=== PATIENT | male | born 1935 | race Caucasian/White ===

== ENCOUNTER 2017-01-25 08:37 | Day surgery (SDC) | payer MEDICARE ==
--- NOTE | 2017-01-18 15:43 | HP ---
CC: Dr. Damien Hodge * ADMISSION HISTORY AND PHYSICAL: DATE OF ADMISSION: 01/25/17 ATTENDING SURGEON: Dr. Toby Pena *(REBECCA Nickerson dictating). CHIEF COMPLAINT: Umbilical hernia. HISTORY OF PRESENT ILLNESS: This is a 81-year-old male, who underwent laparoscopic bilateral inguinal hernia repair with Dr. Pena in 2004. There was apparently a small umbilical hernia at the time and that was closed primarily. The patient did well initially. Beginning about 6 months ago, he noted the development of a bulge near the umbilical incision and this has increased in size over time. He states that it has otherwise been asymptomatic and he specifically denies pain or any change in GI function. He does note that the bulge increases in relation to activity and therefore, he has had to curb some of his exercises that he normally does for his chronic back pain. He was seen by Dr. Pena in the office on 12/13/16, at which time exam confirmed the presence of an umbilical hernia somewhat to the left and midline. On Dr. Pena's exam, it is described as readily reducible and tender. On my exam today, I am not able to easily reduce it, though it remains nontender. Dr. Pena discussed with him the indications for surgery, the risks, benefits and alternatives, including the possibility of no surgery. The would like to proceed as scheduled with open repair, recurrent umbilical hernia with mesh. PAST MEDICAL HISTORY: Hyperlipidemia, BPH, peripheral arterial disease, macular degeneration of the right eye. He denies any history of heart disease, diabetes, or COPD, though he was a long-time smoker who quit 3-1/2 years ago. PAST SURGICAL HISTORY: Open right inguinal herniorrhaphy at age 14, laparoscopic bilateral inguinal herniorrhaphies with primary umbilical hernia repair in 2004. No reported surgical or anesthesia complications. CURRENT MEDICATIONS: 1. Aspirin 81 mg once daily (he will hold preoperatively, his last dose being 01/18/17). 2. Tamsulosin 0.4 mg once daily 3. Cilostazol 100 mg b.i.d. (he will hold after his last dose the evening of ). 4. Simvastatin 40 mg daily. 5. He takes multivitamin. 6. PreserVision AREDS. 7. Fish oil 2 capsules daily. DRUG ALLERGIES: None known. FAMILY HISTORY: Negative for anesthesia problems, bleeding or clotting disorders. SOCIAL HISTORY: The patient is . 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 He is a former smoker of up to 2 packs per day for 40+ years. He quit 3-1/2 years ago. He drinks less than or equal to 1 glass of wine daily. He denies other drug use. REVIEW OF SYSTEMS: General: No recent constitutional symptoms or acute illnesses. His weight has been stable. HEENT: He has full dentures. He has macular degeneration of the right eye. Cardiovascular: No chest pain or palpitations. History of hypertension, AR, or angina. He does have some claudication symptoms, but he is able to walk daily. Respiratory: Long-term smoking history, but states that his breathing has improved since he quit smoking. He walks daily. No recent cough or shortness of breath. GI: No problems reported. Specifically, no change in GI function. : Nocturia x1. Reduced stream, though some improvement with tamsulosin. No other obstructive symptoms. Endocrine: No diabetes or thyroid dysfunction. PHYSICAL EXAMINATION GENERAL: Well-nourished elderly male, who appears younger than his stated age of 81. VITAL SIGNS: Height 5 feet 11 inches, weight 190 pounds, blood pressure 128/66 , pulse 84, respirations 18. HEENT: Pupils equal, round, and reactive. EOMs intact. No conjunctival pallor. Oropharynx: Full upper and lower dentures. No intraoral lesions. NECK: No lymphadenopathy, thyromegaly, or masses. LUNGS: Clear to auscultation. No rales or wheezes. HEART: Regular rate and rhythm. No murmur noted. ABDOMEN: Mildly obese; well-healed right groin incision and umbilical incision. There is a visible and palpable bulge near the umbilicus and just to the left of midline. This is nontender and by my exam today it is incompletely reducible. The remainder of the abdomen is soft, nontender and without palpable masses or organomegaly. GENITALIA: Not done. RECTAL: Not done. BACK: No spinous process or CVA tenderness. EXTREMITIES: No edema. Peripheral pulses not specifically examined. NEUROLOGICAL: Grossly intact. SKIN: Warm and dry. No suspicious rashes or lesions noted, though full skin exam not performed at this time. IMPRESSION: Recurrent umbilical hernia. PLAN: Open repair, recurrent umbilical hernia with mesh. REBECCA NICKERSON [id number]/[facility] #: [id number] [facility]
[~2017-01-25 08:37] MED LIST: Buffered Lidocaine 0.9% SYRIN* 5 ML/SYR SYRINGE INTRADERM ONE; Sodium Citrate/Citric Acid* 15 ML UDC PO ONE; celeCOXIB CAP* 200 MG PO ONE
[2017-01-25] MEDS ORDERED: ceFAZolin 2 GM PREMIX (*) 50 ML IVPB ONE (08:45)
[2017-01-25] MEDS ORDERED: celeCOXIB CAP* 100 MG ONE (08:45)
[2017-01-25] MEDS ORDERED: Sodium Citrate/Citric Acid* 15 ML UDC ONE (08:45)
[2017-01-25] MEDS ORDERED: fentaNYL* 50 MCG/ML 2 ML VIAL (100 MCG VIAL) ONE (11:27)
[2017-01-25] MEDS ORDERED: Midazolam* 1 MG/ML 5 ML VIAL (5 MG) ONE (11:27)
[2017-01-25] MEDS ORDERED: Bupivacaine 0.5% SDV PF* 30 ML VIAL ONE (11:28)
[2017-01-25] MEDS ORDERED: Lidocaine 1% INJ* 10 MG/ML 30 ML SDV ONE (11:28)
[2017-01-25] MEDS ORDERED: Propofol* 10 MG/ML 20 ML BTL IV PUSH ONE (11:59)
[2017-01-25] MEDS ORDERED: HYDROcodone/ACETAMIN 5-325 MG* 1 TAB PO PRN (12:29)
--- NOTE | 2017-01-25 12:29 | PN ---
Progress Note - Progress Note Date of Service: 01/25/17 Note: Brief Operative Note: Preop Dx: recurrent umbilical hernia Postop Dx: same Procedure: open repair umbilical hernia w/ mesh Ventralex) Anesthesia: local MAC Surgeon: Becky Asst: REBECCA Parra; ALBA Araujo EBL: < 50 ml Fluids: 1200 ml RL Specimen: none Drains: none Findings: dictated
[2017-01-25] MEDS ORDERED: Acetaminophen TAB* 325 MG PO PRN (12:30)
[2017-01-25] MEDS ORDERED: HYDROcodone/ACETAMIN 5-325 MG* 1 TAB ONE (12:53)
[2017-01-25 14:07] VITALS: BP 130/59
--- NOTE | 2017-01-26 02:53 | OP ---
CC: Dr. Damien Hodge * DATE OF OPERATION: 01/25/17 - [facility] DATE OF : 39 SURGEON: Toby Pena MD LIFE ENRICHMENT ASSISTANT: REBECCA Nickerson ANESTHESIOLOGIST: Dr. Rustam Anderson. ANESTHESIA: LMAC. PRE-OP DIAGNOSIS: Recurrent umbilical hernia. POST-OP DIAGNOSIS: Recurrent umbilical hernia. OPERATIVE PROCEDURE: Open repair of recurrent umbilical hernia with mesh. COMPLICATIONS: No complications. DRAINS: No drains. SPECIMEN: No pathologic specimens. COUNTS: Sponge and instrument counts correct. ESTIMATED BLOOD LOSS: Less than 20 mL. DESCRIPTION OF PROCEDURE: The patient is supine on the operative table. After adequate intravenous sedation, compression stockings, Reymundo Hugger warmer, and intravenous antibiotics, the abdomen was clipped and prepped with antiseptic, draped in a sterile fashion. Local infiltrative anesthesia was administered. Previous incision was reentered and then expanded to about 4 cm in length. Hernia of about 3 cm was identified. It was sort of fibrotic from the previous surgery. It was ultimately dissected free to a defect of about 3 cm. This was reduced and the preperitoneal plane was developed and an 8.4 cm underlay patch was inserted. This was sutured up underneath with [id number] 0 Vicryl sutures. A total of 8 sutures were utilized around the circumference and the fascia was closed over top with 0 Polysorb. The umbilical skin was tacked back down and subcutaneous closed with 3-0 Polysorb and skin with 5-0 Polysorb followed by Steri-Strips and a gauze dressing. He tolerated the procedure well and was brought to Recovery in good condition. [id number]/[facility] #: [id number] [facility]
== END 2017-01-25 14:08 | disposition home or self-care (01) ==
LOC: OR 08:37
PROVIDERS: ATTEND Surgery
PROC: 0WUF0JZ Supplement Abdominal Wall with Synthetic Substitute, Open Approach (ICD-10-PCS; principal; 2017-01-25 10:15)
DX: K42.9 Umbilical hernia without obstruction or gangrene (principal); Z87.891 Personal history of nicotine dependence; E78.00 Pure hypercholesterolemia, unspecified; M19.90 Unspecified osteoarthritis, unspecified site; N40.0 Benign prostatic hyperplasia without lower urinary tract symptoms
CPT/HCPCS: A9270-GY; C1781; J0690; J2001; J2250; J2704; J3010

== ENCOUNTER 2017-10-17 10:54 | Day surgery (SDC) | payer MEDICARE ==
[~2017-10-17 10:54] MED LIST changes: -Sodium Citrate/Citric Acid* 15 ML UDC PO ONE; -celeCOXIB CAP* 200 MG PO ONE
[2017-10-17] MEDS ORDERED: Phenylephrine 2.5% OPTH.SOL* 2 ML BTL ONE (12:25)
[2017-10-17] MEDS ORDERED: Lidocaine 2% EPI 1:200000 MPF*10-20 ML VIAL ONE (12:25)
[2017-10-17] MEDS ORDERED: Neomycin/Polymy/Dex OPTH.SUSP* MAXITROL 0.1% 5 ML ONE (12:25)
[2017-10-17] MEDS ORDERED: Proparacaine 0.5% OPHTH.SOL* 15 ML BTL ONE (12:25)
[2017-10-17] MEDS ORDERED: Lidocaine 1%* 5 ML VIAL ONE (12:25)
[2017-10-17] MEDS ORDERED: Povidone Iodine 5% OPTH* 30 ML BTL ONE (12:25)
[2017-10-17] MEDS ORDERED: Cyclopentolate 1% OPTH.SOL* 2 ML BTL ONE (12:25)
[2017-10-17] MEDS ORDERED: acetaZOLAMIDE TAB* 250 MG ONE (12:25)
[2017-10-17] MEDS ORDERED: Ketorolac 0.5% OPHTH (NF) 0.5 % 5 ML BTL ONE (12:25)
[2017-10-17] MEDS ORDERED: Midazolam* 1 MG/ML 2 ML VIAL (2 MG) ONE (13:32)
[2017-10-17 14:10] VITALS: BP 139/71
--- NOTE | 2017-10-18 09:33 | OP ---
DATE OF OPERATION: 10/17/17 - [facility] DATE OF : 39 SURGEON: Fortunato Vergara M.D. PREOPERATIVE DIAGNOSIS: Cataract, left eye. POSTOPERATIVE DIAGNOSIS: Cataract, left eye. OPERATIVE PROCEDURE: Extracapsular cataract extraction with intraocular lens implant left eye. DESCRIPTION OF PROCEDURE: The patient was brought to the operating room after being given 1/2% Alcaine with epinephrine drops in the preoperative area. The eye was prepped and draped in the usual sterile fashion. Sterile drape and eyelid speculum were placed. Again, topical 1/2% Alcaine with epinephrine was given. A paracentesis incision was made at the 3 o'clock position with the No.75 blade. Clear cornea incision 2.2 x 2.2-mm was created at the 6 o'clock position starting at the anterior limbus using the 2.2-mm keratome. The anterior chamber was irrigated with 0.4 mL of 1% non-preservative intracameral lidocaine and filled with DisCoVisc. A capsulorrhexis was completed using the cystotome and the Utrata forceps. Hydrodissection was performed with balanced salt solution. The lens nucleus was removed with the Phacoemulsification handpiece without incident. Cortex was removed with the irrigation-aspiration handpiece. The capsular bag was re-inflated using DisCoVisc and an [id number] implant was inserted with the shooter. The irrigation-aspiration handpiece was used to remove all residual DisCoVisc. The eye was refilled with balanced salt solution and the wound checked and found to be watertight. Topical Maxitrol drops were given. [id number]/[facility] #: [id number] [facility]
== END 2017-10-17 14:22 | disposition home or self-care (01) ==
LOC: OREAST 10:54
PROVIDERS: ATTEND Specialist
DX: H25.812 Combined forms of age-related cataract, left eye (principal); H35.3121 Nonexudative age-related macular degeneration, left eye, early dry stage; H40.1111 Primary open-angle glaucoma, right eye, mild stage; H35.3212 Exudative age-related macular degeneration, right eye, with inactive choroidal neovascularization; H25.22 Age-related cataract, morgagnian type, left eye; H26.491 Other secondary cataract, right eye; N40.0 Benign prostatic hyperplasia without lower urinary tract symptoms; I70.211 Atherosclerosis of native arteries of extremities with intermittent claudication, right leg; E78.4 Other hyperlipidemia; J44.9 Chronic obstructive pulmonary disease, unspecified; Z87.891 Personal history of nicotine dependence; Z96.1 Presence of intraocular lens
CPT/HCPCS: A9270-GY; J2250; V2632